=== PATIENT | female | born 1980 | race Two or more races ===

== ENCOUNTER → 2019-07-25 | Day surgery (SDC) | payer BC, OTHER ==
--- NOTE | 2019-07-25 18:34 | OP ---
DATE OF OPERATION: 07/25/2019 PREOPERATIVE DIAGNOSIS: Abnormal left mammography. POSTOPERATIVE DIAGNOSIS: Abnormal left mammography. PROCEDURE: Left breast stereotactic needle biopsy with clip. SURGEON: Krupa Snyder MD ANESTHESIA: Local. COMPLICATIONS: None. This was a sterile procedure. INDICATION FOR PROCEDURE: Patient presented with screening mammography that noted a cluster of microcalcifications in the upper inner left breast. My recommendation was a needle biopsy. The procedure was discussed with her including need for a clip. PROCEDURE IN DETAIL: Patient was brought to the [facility] in [place], laid prone on the Lorad table. Using the cranial approach, the calcifications in the upper inner left breast were identified. A sterile prep was obtained. A target was chosen. There was a positive stroke margin. Using Betadine and 1% lidocaine, a 9-gauge Suros device was used to take several cores from this area. Specimen radiograph showed cores with calcification. These were handled using the calcification protocol. A clip was applied in the area. Hemostasis was assured with direct pressure. The incision was closed with Steri-Strips. She tolerated the procedure well and left the breast imaging center in good condition. KRUPA SNYDER M.D. [id number]
--- NOTE | 2019-07-27 12:39 | PATH ---
Surgical Pathology Report Patient Name: JESENIA CUNHA [facility]. Rec. #: [id number] /Age/Gender: 1980 (Age: 38) / F Account: [id number] Location: [facility] Taken: 07/25/2019 Received: 07/25/2019 Reported: 07/27/2019 Physicians: Krupa Mancia M.D. Specimen(s) Received A: LEFT BREAST WITH CALCIFICATIONS STEREOTACTIC BX B: LEFT BREAST WITHOUT CALCIFICATIONS STEREOTACTIC BX Clinical History Non-palpable lesion Mammographic findings: Microcalcification, suspicious Final Diagnosis A. 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 B. BREAST, LEFT, WITHOUT CALCIFICATIONS, STEREOTACTIC BIOPSY: BENIGN BREAST TISSUE. Electronically Signed Keren Catalan M.D. Gross Description A. Received in formalin labeled "left breast with calcifications," are 2 ulloa-yellow, cylindrical portions of fibroadipose tissue averaging 2.0 cm in length and 0.3 cm in diameter. The specimens are submitted in toto in one cassette. B. Received in formalin labeled "left breast without calcifications," is a 2.0 x 1.8 x 0.3 cm aggregate of multiple portions of fibroadipose tissue. The formalin is filtered and the specimen is entirely submitted in one cassette. Time to formalin fixation: 5 minutes Total formalin fixation time: Approximately 30 hours. 07/26/2019 saudi/07/26/2019
== END | disposition home or self-care (01) ==
LOC: FMAMMOTONE 10:38
PROVIDERS: ATTEND Surgery
PROC: 0HBU3ZX Excision of Left Breast, Percutaneous Approach, Diagnostic (ICD-10-PCS; principal; 2019-07-25)
DX: N60.92 Unspecified benign mammary dysplasia of left breast (principal); N64.89 Other specified disorders of breast; R92.8 Other abnormal and inconclusive findings on diagnostic imaging of breast
CPT/HCPCS: 19081; 76098-TC-FY; 87899; 88305-TC; A4648

== ENCOUNTER 2019-12-07 07:26 | Day surgery (SDC) | payer BC ==
[2019-12-07] MEDS ORDERED: LIDOCAINE HCL 1%, 10 MG/ML (20ML VIAL) ONE ×2 (09:08→09:59)
[2019-12-07] MEDS ORDERED: MIDAZOLAM HCL 2 MG/2 ML SINGLE DOSE VIAL ONE ×2 (10:07)
[2019-12-07] MEDS ORDERED: PROPOFOL 20 ML ONE (10:07)
[2019-12-07] MEDS ORDERED: fentaNYL CITRATE 250 MCG/5 ML VIAL ONE (10:07)
[2019-12-07] MEDS ORDERED: KETOROLAC TROMETHAMINE 30 MG/1 ML VIAL ONE (10:27)
[2019-12-07] MEDS ORDERED: DEXAMETHASONE SOD PHOSPHATE 4 MG/1 ML VIAL ONE (10:27)
[2019-12-07] MEDS ORDERED: ceFAZolin SODIUM 1 GM VIAL ONE (10:34)
[2019-12-07] MEDS ORDERED: ceFAZolin SODIUM 1 GM VIAL IVPB ONE (10:36)
[2019-12-07] MEDS ORDERED: LIDOCAINE HCL 1%, 10 MG/ML (20ML VIAL) NR ONE (10:39)
[2019-12-07] MEDS ORDERED: ONDANSETRON 4 MG/2 ML VIAL IVPUSH PRN (11:24)
[2019-12-07] MEDS ORDERED: oxyCODONE HCL 5 MG TABLET PO PRN (11:24)
[2019-12-07] MEDS ORDERED: LACTATED RINGERS SOLUTION 1,000 ML IV SCH (11:30)
[2019-12-07 12:46] VITALS: TEMP 98
[2019-12-07 13:08] VITALS: BP 108/68; PULSE 60
--- NOTE | 2019-12-08 23:48 | OP ---
DATE OF OPERATION: 12/07/2019 PREOPERATIVE DIAGNOSIS: Left breast atypia. POSTOPERATIVE DIAGNOSES: Left breast atypia. PROCEDURE: Left breast wide localized lumpectomy. SURGEON: Krupa Mancia MD ANESTHESIA: Local. COMPLICATIONS: None. DISPOSITION: Stable at the end of the procedure. INDICATION FOR PROCEDURE: Patient had a stereotactic needle biopsy of the left breast for calcifications that showed atypical ductal hyperplasia. I am recommending an excision to make sure there is no further upgrade in the lesion. PROCEDURE DETAIL: Patient was taken to breast imaging, where a wire was used to localize a clip in the upper inner left breast by the radiologist. She was brought up to the operating room and after IV sedation and IV antibiotics, the left breast was prepped and draped in the usual sterile fashion. There area of the upper inner left breast was anesthetized with 1% lidocaine without epinephrine. A curvilinear incision was made in the upper inner left breast and the wire was used as a guide to get down to the area of interest. It was excised en bloc. Tagged with a long lateral suture superior. It was sent for specimen radiograph as a left breast lumpectomy. Specimen radiograph showed the clip and wire to be intact within the specimen. This was then sent to pathology for permanent section. Hemostasis assured with electrocautery. The parenchyma was approximated with interrupted 2-0 Vicryl; the skin approximated with interrupted 3-0 Vicryl and running 4-0 Prolene. A sterile dressing with Tegaderm and 4 x 4's applied. She tolerated the procedure well and was taken to recovery in good condition. Hunter [id number]
--- NOTE | 2019-12-11 11:27 | PATH ---
Surgical Pathology Report Patient Name: JESENIA CUNHA [facility]. Rec. #: [id number] /Age/Gender: 1980 (Age: 39) / F Account: [id number] Location: [facility] Taken: 12/07/2019 Received: 12/07/2019 Reported: 12/11/2019 Physicians: Krupa Mancia M.D. Specimen(s) Received LEFT BREAST LUMPECTOMY Clinical History Left breast atypia Final Diagnosis BREAST, LEFT, LUMPECTOMY: FLAT EPITHELIAL ATYPIA AND COLUMNAR CELL CHANGES IN A BACKGROUND OF FIBROCYSTIC CHANGES INCLUDING STROMAL FIBROSIS, MICROCYSTS, AND FOCAL USUAL DUCTAL HYPERPLASIA. CHANGES OF PRIOR BIOPSY PRESENT. Electronically Signed Magui Mcguire M.D. Gross Description Received fresh on an AccuGrid, labeled "left breast lumpectomy," is a 5.0 x 4.0 x 1.6 cm. ulloa-yellow, irregular, portion of fibroadipose tissue. There is a short suture marking the superior aspect and a long suture marking the lateral aspect, per the surgeon. There is no skin or nipple present. The specimen is inked as follows: superior and lateral blue; inferior green; medial yellow; anterior red; deep black. The specimen is serially sectioned from superior to inferior. Sectioning reveals a focus of hemorrhage, consistent with a previous biopsy site. No masses are identified. Signals Collection Technician sections including the majority of the specimen are sequentially submitted in 9 cassettes with the superior margin in cassette 1 and the inferior margin in cassette 9. Total formalin fixation time: Approximately 6 hours DL/12/07/2019 saudi/12/07/2019
== END 2019-12-07 15:15 | disposition home or self-care (01) ==
LOC: JASU-SURG 07:26
PROVIDERS: ATTEND Surgery
PROC: 0HBU0ZZ Excision of Left Breast, Open Approach (ICD-10-PCS; principal; 2019-12-07 10:00)
DX: N60.82 Other benign mammary dysplasias of left breast (principal); N60.32 Fibrosclerosis of left breast
CPT/HCPCS: 19281; 76098-TC-FY; 84703; 88307-TC; 94760